=== PATIENT | male | born 1980 | race Caucasian/White ===

== ENCOUNTER 2016-04-28 19:47 | Emergency (ER) | payer OTHER ==
[2016-04-28 19:55] VITALS: BP 166/98
--- NOTE | 2016-04-28 20:40 | RADIOLOGY REPORT ---
EXAMINATION: XR TOE, RIGHT CLINICAL INFORMATION: Trauma to the fifth toe. COMPARISON: None. TECHNIQUE: 3 views. FINDINGS: There is a minimally displaced intra-articular fracture of the proximal phalanx of the fifth toe. Fracture extends from the metaphysis at the lateral side of the bone to the articular surface at the metatarsophalangeal joint. IMPRESSION: Minimally displaced intra-articular fracture proximal phalanx of fifth toe.
[2016-04-28] MEDS ORDERED: PERCOCET 5-3251 EACH PO ×2 (20:44→20:45)
--- NOTE | 2016-04-28 20:47 | ED ANKLE/FOOT INJURY COMPLAINT ---
History of Present Illness General Chief Complaint: Foot or Ankle Injury Stated Complaint: PT SMASH HIT LITTLE TOE ON THE RG FOOT Source: patient Exam Limitations: no limitations Vital Signs & Intake/Output Vital Signs & Intake/Output Vital Signs Date Time Temp Pulse Resp B/P Pulse O2 O2 Flow FiO2 Ox Delivery Rate 04/28 1954 97.3 100 22 166/98 Allergies Coded Allergies: No Known Allergies (04/28/16) Reconcile Medications Oxycodone HCl/Acetaminophen (Percocet 5-325 MG Tablet) 5 MG-325 MG TABLET 1-2 TAB PO Q6P PRN pain Triage Note: PER PT HIT RT 5TH DIGIT ON FURNITURE NEED TO MAKE SURE ITS OK Triage Nurses Notes Reviewed? yes Occurred: yesterday Duration: day(s): (1), constant Timing: recent history Severity: moderate, severe Pain/Injury Location: Right: 5th toe. Method of Injury: direct blow No Modifying Factors: none HPI: 36-year-old male comes into emergency room for further evaluation of right fifth toe pain. Patient reports that yesterday he stepped his toe on a door. Patient is have some swelling and bruising since then. In pain. Nonradiating. Denies any ankle pain. Denies any other associated symptoms (SOY AGUILERA) Past History Travel History Traveled to [place] past 21 day No Medical History Any Pertinent Medical History? see below for history Neurological: NONE Cardiovascular: NONE Respiratory: NONE Gastrointestinal: NONE Hepatic: NONE Renal: NONE Musculoskeletal: NONE Psychiatric: NONE Endocrine: NONE Surgical History Surgical History: non-contributory Psychosocial History What is your primary language [place] Tobacco Use: Never used Family History Hx Contributory? No (SOY AGUILERA) Review of Systems Review of Systems Constitutional: Reports: no symptoms. EENTM: Reports: no symptoms. Respiratory: Reports: no symptoms. Cardiovascular: Reports: no symptoms. GI: Reports: no symptoms. Genitourinary: Reports: no symptoms. Musculoskeletal: Reports: see HPI. Skin: Reports: no symptoms. Neurological/Psychological: Reports: no symptoms. Hematologic/Endocrine: Reports: no symptoms. Immunologic/Allergic: Reports: no symptoms. All Other Systems: Reviewed and Negative (SOY AGUILERA) Physical Exam Physical Exam General Appearance: well developed/nourished, mild distress Head: atraumatic Eyes: Bilateral: normal appearance, EOMI. Ears, Nose, Throat: normal ENT inspection, hearing grossly normal Neck: normal inspection Cardiovascular/Respiratory: no respiratory distress Back: normal inspection Leg/Knee/Thigh Left: normal inspection Foot Right: ecchymosis, soft tissue tenderness, swelling, right fifth toe Neuro/Vascular: normal motor function, normal sensation Tendon: normal tendon function Psychiatric: awake, alert, oriented x 3 Skin: intact, normal color, warm/dry (SOY AGUILERA) Progress Differential Diagnosis: cellulitis, fracture, dislocation, sprain, contusion Plan of Care: 04/28/2016 10:42:33 PM Nontoxic-appearing. In no apparent distress. Follow-up with orthopedic. Return if any other concerns. Diagnostic Imaging: Viewed by Me: Radiology Read. Discussed w/RAD: Radiology Read. Radiology Impression: SERVICE DATE: 04/28/16 EXAM TYPE: RAD - XRY-TOES, RIGHT EXAMINATION: XR TOE, RIGHT CLINICAL INFORMATION: Trauma to the fifth toe. COMPARISON: None. TECHNIQUE: 3 views. FINDINGS: There is a minimally displaced intra-articular fracture of the proximal phalanx of the fifth toe. Fracture extends from the metaphysis at the lateral side of the bone to the articular surface at the metatarsophalangeal joint. IMPRESSION: Minimally displaced intra- articular fracture proximal phalanx of fifth toe. DICTATED BY: INA WHITLOCK MD DATE/TIME DICTATED:04/28/162035 BREAKFAST HOSTESS:PATSY DATE/TIME TRANSCRIBED:04/28/162035 (SOY AGUILERA) Departure Departure Disposition: HOME OR SELF CARE Condition: Stable Clinical Impression Primary Impression: Toe fracture, right Referrals: PATIENT HAS NO PRIMARY CARE DR (PCP/Family) HORTENCIA CHEEMA MD Additional Instructions: take Percocet as prescribed. Ice. Rest. Follow-up with orthopedic doctor provided. Return if any other concerns worsening symptoms. Light weightbearing as tolerated. No high-impact running or jumping. Departure Forms: Customer Survey General Discharge Information Prescriptions: Current Visit Scripts Oxycodone HCl/Acetaminophen (Percocet 5-325 MG Tablet) 1-2 TAB PO Q6P PRN pain #15 TAB (SOY AGUILERA) PA/SUPERVISOR [employer] WORK[employer] Co-Sign Statement Statement: ED Attending supervision documentation- [] I saw and evaluated the patient. I have also reviewed all the pertinent lab results and diagnostic results. I agree with the findings and the plan of care as documented in the PA's/SUPERVISOR [employer] WORKER's documentation. x I have reviewed the ED Record and agree with the PA's/SUPERVISOR [employer] WORKER's documentation. [] Additions or exceptions (if any) to the PAs/SUPERVISOR [employer] WORKER's note and plan are summarized below: [] (ALYCIA OWEN,SHIRA)
== END 2016-04-28 20:52 ==
LOC: ERH 19:47
DX: S92.511A Displaced fracture of proximal phalanx of right lesser toe(s), initial encounter for closed fracture (principal); W23.0XXA Caught, crushed, jammed, or pinched between moving objects, initial encounter
CPT/HCPCS: 73660-RT